=== PATIENT | female | born 1945 | race African-American/Black ===

== ENCOUNTER 2019-01-24 09:28 | Day surgery (SDC) | payer MEDICARE ==
[2019-01-24 10:48] LABS: #Eosinphils 0.1 thou/uL (0.0-0.7); #Lymphocytes 1.2 thou/uL (1.20-3.40); #Monocytes 0.4 thou/uL (0.11-0.59); #Neutrophils 2.8 thou/uL (1.40-6.50); %Basophils 0.4 % (0.0-1.0); %Eosinophils 2.4 % (0.0-10.0); %Lymphocytes 27.2 % (21.0-51.0); %Monocytes 9.6 % (0.0-10.0); %Neutrophils 60.4 % (42.0-75.0); Hemoglobin 8.9 g/dL (12.0-16.0); Mean Corpuscular HGB CONC 32.3 g/dL (32.0-36.0); Mean Corpuscular Hemoglobin 27.6 pg (27.0-31.0); Mean Corpuscular Volume 85.4 fL (78.0-98.0); Mean Platelet Volume 8.3 fL (7.4-10.4); Platelet Count 160 thou/uL (130-400); RBC Distribution Width 11.8 % (11.5-14.5); Red Blood Cell (RBC) Count 3.23 mill/uL (4.20-5.40); White Blood Cell (WBC) Count 4.6 thou/uL (4.8-10.8)
[2019-01-24 10:56] LABS: Magnesium 2.3 mg/dL (1.6-2.6); Phosphorus 4.4 mg/dL (2.3-4.7)
[2019-01-24 10:58] LABS: ALT (SGPT) 10 U/L (8-55); AST (SGOT) 14 U/L (5-34); Albumin 4.1 g/dL (3.4-4.8); Alkaline Phosphatase 169 U/L (40-150); Anion Gap 16 mmol/L (10-20); BUN (Urea Nitrogen) 88 mg/dL (9.8-20.1); Bilirubin, Total 0.2 mg/dL (0.2-1.2); Calc. Creatinine Clearance 0 mL/min (70-130); Calcium 9.2 mg/dL (7.8-10.44); Carbon Dioxide 21 mmol/L (23-31); Chloride 105 mmol/L (98-107); Estimated GFR-MDRD 8; Globulin 2.7 g/dL (2.4-3.5); Glucose 69 mg/dL (83-110); Potassium 4.1 mmol/L (3.5-5.1); Protein, Total 6.8 g/dL (6.0-8.3); Sodium 138 mmol/L (136-145)
--- NOTE | 2019-01-24 11:23 | PDOC.FPRHP ---
- History of Present Illness History of Present Illness: Patient is a 73 year old female, past medical history of HTN, DMII and leukemia (remission x 8 years) was sent to the ED by her primary care physician Dr. Thomas, due to a GFR of 5. The patient notes that her kidney function has been declining ever since she had dialysis, last time 8 years ago, for her leukemia. Dr. Thomas has contacted the [facility] [employer] to have outpatient dialysis - History PMHx: PSHx: FHx: Social: - Vital signs BP: [] HR: [] RR: [] Tmax: [] Pox: []% on [] Wt: [] FMR H&P: Results - Labs Result Diagrams: 01/24/19 10:10 01/24/19 10:10 Lab results: WBC 4.6 thou/uL (4.8-10.8) L 01/24/19 10:10 Hgb 8.9 g/dL (12.0-16.0) L 01/24/19 10:10 Hct 27.6 % (36.0-47.0) L 01/24/19 10:10 MCV 85.4 fL (78.0-98.0) 01/24/19 10:10 Plt Count 160 thou/uL (130-400) 01/24/19 10:10 Neutrophils % 60.4 % (42.0-75.0) 01/24/19 10:10 Sodium 138 mmol/L (136-145) 01/24/19 10:10 Potassium 4.1 mmol/L (3.5-5.1) 01/24/19 10:10 Chloride 105 mmol/L (98-107) 01/24/19 10:10 Carbon Dioxide 21 mmol/L (23-31) L 01/24/19 10:10 BUN 88 mg/dL (9.8-20.1) H 01/24/19 10:10 Creatinine 5.23 mg/dL (0.6-1.1) H 01/24/19 10:10 Glucose 69 mg/dL (83-110) L 01/24/19 10:10 Calcium 9.2 mg/dL (7.8-10.44) 01/24/19 10:10 Total Bilirubin 0.2 mg/dL (0.2-1.2) 01/24/19 10:10 AST 14 U/L (5-34) 01/24/19 10:10 ALT 10 U/L (8-55) 01/24/19 10:10 Alkaline Phosphatase 169 U/L (40-150) H 01/24/19 10:10 Serum Total Protein 6.8 g/dL (6.0-8.3) 01/24/19 10:10 Albumin 4.1 g/dL (3.4-4.8) 01/24/19 10:10 FMR H&P: Upper Level - Plan Date/Time: 01/24/19 1119 I, [], have evaluated this patient and agree with findings/plan as outlined by internet marketing director resident. Pertinent changes/additions are listed here.
--- NOTE | 2019-01-24 11:36 | RAD ---
XR Chest 1 View Portable HISTORY: Dyspnea. Patient to start dialysis. COMPARISON: None. FINDINGS: Heart size is enlarged. There are atherosclerotic changes of the aorta. The lungs are clear of infiltrates. There are no signs of failure. IMPRESSION: Mild cardiomegaly.
[2019-01-24] MEDS ORDERED: Acetaminophen 325 MG TAB ONE (11:39)
[2019-01-24 12:08] LABS: HBSAB Concentration 1.71 mIU/mL; HBSAg Index 0.19 S/CO (0-0.99); Hep B Core Total Ab Non-Reactive (NonReactive); Hep B Core Total Index 0.04 S/CO (0-0.79); Hep B Surf AB Non-Reactive (NonReactive); Hep B Surf Ag Non-Reactive S/CO (NonReactive); Hep C IgG Ab Non-Reactive (NonReactive); Hep C Index 0.12 S/CO (0-0.79)
[2019-01-24] MEDS ORDERED: Bupivacaine/Epinephrine 0.25% 30 ML VIAL ONE (16:20)
[2019-01-24] MEDS ORDERED: Heparin 10,000 UNITS/1 ML VIAL ONE (16:20)
[2019-01-24] MEDS ORDERED: Fentanyl 100 MCG/2 ML VIAL ONE ×4 (17:02→19:29)
--- NOTE | 2019-01-24 17:21 | HP ---
CHIEF COMPLAINT: Renal failure. HISTORY OF PRESENT ILLNESS: Ms. Smith is a 73-year-old woman, who recently moved to the area. She went to her deputy chief executive today and was told to come to the emergency room for institution of dialysis. However, when she was evaluated here, Dr. Fierro felt that she does not require immediate dialysis and could wait for a peritoneal dialysis catheter to be placed. The patient prefers peritoneal dialysis to hemodialysis as her long-term option of choice and has already discussed her options with a dialysis choice nurse. She has very mild uremia symptoms of decreased appetite and has no fluid overload or hyperkalemia and her creatinine is 5 or as it has been as high as 9 in the past. She has been on dialysis 8 years ago when she was undergoing treatment for leukemia, but her renal function recovered and she has been off dialysis since then. PAST MEDICAL HISTORY: Type 2 diabetes; hypertension; hyperlipidemia; hypothyroidism; arthritis; and history of leukemia, currently in remission. PAST SURGICAL HISTORY: Partial hysterectomy and tunneled dialysis catheter placement and later removal. ALLERGIES: NO KNOWN DRUG ALLERGIES. OUTPATIENT MEDICATIONS: Include: 1. Amlodipine 10 mg p.o. daily. 2. Atorvastatin 10 mg p.o. daily. 3. Synthroid 125 mcg p.o. daily. 4. Metoprolol 25 mg p.o. daily. 5. Tramadol 50 mg p.o. q.6 hours p.r.n. pain. 6. Ranitidine 150 mg p.o. b.i.d. 7. Sucralfate 1 g p.o. t.i.d. 8. Align probiotic one p.o. daily. 9. Antimicrobial topical solution swish and spit twice a day. REVIEW OF SYSTEMS: Ten system review of systems is negative except per HPI. FAMILY HISTORY: Noncontributory. Her daughter has lupus. SOCIAL HISTORY: She is currently living with her daughter. She does not smoke, drink, or use illicit drugs. LABORATORY DATA: Troponin is less than 1.01. BUN and creatinine are 88 and 5.23, potassium is 4.1, bicarb is 21. White cells 4.6, hematocrit 27.6, platelets 160. Phosphorus 4.4. Alkaline phosphatase is slightly high at 169, but other LFTs are normal. PHYSICAL EXAMINATION: VITAL SIGNS: The patient was initially quite hypertensive in the emergency room, but blood pressure has come down to normal range at 120/85, heart rate 66, respirations 18, 98% saturated on room air. GENERAL: Reveals a pleasant older woman, in no acute distress, who appears younger than her stated age. HEENT: Unremarkable. NECK: Supple without lymphadenopathy or thyroid nodules. HEART: Regular in its rate and rhythm without rubs or gallops. She does have a soft systolic murmur, which is most clearly audible at the right upper sternal border and does not radiate. ABDOMEN: Soft, nontender, nondistended. She has a healed lower midline scar without any palpable masses or hernias. EXTREMITIES: Warm and well perfused with normal dorsalis pedis pulses and no edema. NEURO: No focal deficits. PSYCHIATRIC: Alert, oriented, and appropriate. ASSESSMENT: End-stage renal failure with need to institute dialysis. Her deputy chief executive does not believe that immediate dialysis is necessary and thinks that she can wait a couple of weeks to mature a peritoneal dialysis catheter. The patient strongly prefers peritoneal dialysis to hemodialysis. The procedure of laparoscopic peritoneal dialysis catheter placement was discussed with the patient. Inherent risks were also discussed. These include, but are not limited to, bleeding, infection, risks of anesthesia, damage to nearby structures including bowel and blood vessels, and failure of the peritoneal dialysis catheter to function which would require placement of hemodialysis catheter and eventually fistula or graft. She understands and accepts these risks and wishes to proceed. She has been posted for the operating room schedule for today. Job ID: [id number]
[2019-01-24] MEDS ORDERED: Atracurium 100 MG/10 ML VIAL ONE (18:20)
[2019-01-24] MEDS ORDERED: Ondansetron PF 4 MG/2 ML Vial ONE (19:27)
[2019-01-24] MEDS ORDERED: Promethazine HCl 25 MG/ML VIAL ONE (20:32)
--- NOTE | 2019-01-26 11:08 | PDOC.OP ---
Operative Note - Operative Note Operative Note: PROCEDURE: Laparoscopic peritoneal dialysis catheter placement SURGEON: Jossie Almanzar M.D. DATE OF PROCEDURE: 01/24/2019 PREOPERATIVE DIAGNOSIS: Renal failure POSTOPERATIVE DIAGNOSIS: Renal failure HISTORY: Patient with renal failure and need for imminent dialysis. Peritoneal dialysis has been selected as the modality of choice and a laparoscopic peritoneal dialysis catheter placement has been requested. PROCEDURE IN DETAIL: After informed consent was obtained and appropriate preoperative antibiotic were administered the patient was taken to the operating room, placed in supine position and general endotracheal anesthesia was administered. The abdomen was sterilely prepped and draped and local anesthesia infused at the level of the umbilicus. A transverse skin incision was made and the fascia was elevated. A Veress needle was placed into the abdominal cavity without difficulty and carbon dioxide gas insufflated to an intra-abdominal pressure 15 which the patient tolerated well. There is needle was withdrawn and a [place] port advanced under direct laparoscopic vision into the abdominal cavity which was carefully examined. There was no evidence of Veress needle or trocar injury. There were no significant adhesions. A 5 mm trocar was placed in the lateral upper abdomen and the patient was placed in Trendelenburg. The small bowel was easily drawn up out of the pelvis and no adhesions seen in this area. The bottom of the posterior rectus sheath was identified. Local anesthesia was infused to the skin and subcutaneous tissues overlying and lateral to this area. A skin incision was made and an 8 mm trocar tunneled superiorly medially and then inferiorly through the rectus sheath entering the abdominal cavity just above the inferior edge of the rectus sheath. The peritoneal dialysis catheter was placed through the trocar and held in place positioning the inner cuff within the rectus muscle. The trocar was withdrawn and the end of the peritoneal dialysis catheter placed into the pelvis. Saline was infused and drained easily out of the peritoneal cavity through the cuffed tunneled dialysis catheter. The camera was moved to the upper abdominal trocar site and the umbilical trocar removed. The fascia was bridged with a 0 Vicryl suture on a GraNee needle and the sutures secured not tied down. The trocar was replaced through the same defect and the camera moved back to the umbilical location. The upper abdominal trocar was removed and a 0 Vicryl suture on a GraNee needle used to close the fascial defect. Carbon dioxide gas was allowed to desufflate through the umbilical trocar which was then removed and the fascia closed with the pre-existing suture. The second cuff of the peritoneal dialysis catheter was positioned within the subcutaneous tissues and the skin incision at the exit site closed in 2 layers with 4-0 Monocryl suture. The other skin incisions were closed with subcuticular 4-0 Monocryl suture as well. Dermabond dressings were placed and allowed to dry. Heparin flush was infused through the peritoneal dialysis catheter which was then capped and clamped. Once the Dermabond was dry the PD exit site was dressed with gauze and Tegaderm. The patient was extubated and taken to the recovery room in good condition. Estimated blood loss was minimal. There were no complications. There were no specimens.
--- NOTE | 2019-01-26 13:38 | EKG ---
Test Reason : NEEDS Blood Pressure : / mmHG Vent. Rate : 060 BPM Atrial Rate : 060 BPM P-R Int : 182 ms QRS Dur : 100 ms QT Int : 426 ms P-R-T Axes : 053 013 061 degrees QTc Int : 426 ms Normal sinus rhythm Normal ECG Confirmed by DOMI ALDRIDGE D.O. ([id number]), book editor AC MORA ([id number]) on 01/26/2019 1:38:02 PM Referred By: Confirmed By:DOMI ALDRIDGE D.O.
== END 2019-01-24 21:15 | disposition home or self-care (01) ==
LOC: ERS 09:28
PROVIDERS: ATTEND Surgery
PROC: 0WHG43Z Insertion of Infusion Device into Peritoneal Cavity, Percutaneous Endoscopic Approach (ICD-10-PCS; principal; 2019-01-24)
DX: I12.0 Hypertensive chronic kidney disease with stage 5 chronic kidney disease or end stage renal disease (principal); E11.22 Type 2 diabetes mellitus with diabetic chronic kidney disease; N18.6 End stage renal disease; E78.5 Hyperlipidemia, unspecified; E03.9 Hypothyroidism, unspecified; M19.90 Unspecified osteoarthritis, unspecified site; Z85.6 Personal history of leukemia; Z79.899 Other long term (current) drug therapy
CPT/HCPCS: 36416; 71045; 80053; 83735; 84100; 84484; 85025; 86704; 86706; 86803; 87340; 93005; J0690; J1644; J2405; J2550; J3010

== ENCOUNTER 2020-10-19 10:09 | Inpatient (IN) | payer MEDICARE ==
[2020-10-19] MEDS ORDERED: Dexamethasone 4 mg/ml Vial ONE (11:20)
[2020-10-19] MEDS ORDERED: Dexamethasone 10 MG/ML VIAL ONE (11:22)
[2020-10-19 12:01] LABS: #Eosinphils 0.2 thou/uL (0.0-0.7); #Lymphocytes 1.4 thou/uL (1.20-3.40); #Monocytes 0.5 thou/uL (0.11-0.59); #Neutrophils 16.6 thou/uL (1.40-6.50); %Basophils 0.2 % (0.0-1.0); %Lymphocytes 7.7 % (21.0-51.0); %Monocytes 2.6 % (0.0-10.0); %Neutrophils 88.6 % (42.0-75.0); Hemoglobin 11.9 g/dL (12.0-16.0); Mean Corpuscular HGB CONC 31.6 g/dL (32.0-36.0); Mean Corpuscular Hemoglobin 29.2 pg (27.0-31.0); Mean Corpuscular Volume 92.5 fL (78.0-98.0); Mean Platelet Volume 9.7 fL (7.4-10.4); Platelet Count 254 thou/uL (130-400); RBC Distribution Width 15.8 % (11.5-14.5); Red Blood Cell (RBC) Count 4.07 mill/uL (4.20-5.40); White Blood Cell (WBC) Count 18.7 thou/uL (4.8-10.8)
[2020-10-19] MEDS ORDERED: Cefepime 2 GM VIAL ONE (12:01)
[2020-10-19] MEDS ORDERED: diphenhydrAMINE 12.5 MG/5 ML UDCUP ONE (12:01)
[2020-10-19] MEDS ORDERED: Lorazepam 2 MG/ML VIAL ONE (12:01)
[2020-10-19] MEDS ORDERED: Vancomycin 1 GM/200 ML BAG ONE (12:01)
[2020-10-19] MEDS ORDERED: diphenhydrAMINE 50 MG/ML VIAL ONE (12:02)
[2020-10-19 12:09] LABS: PTT 29.6 sec (22.9-36.1)
[2020-10-19 12:10] LABS: INR-International Normal Ratio 0.9; Prothrombin Time 12.5 sec (12.0-14.7)
[2020-10-19 12:14] LABS: ALT (SGPT) 25 U/L (8-55); AST (SGOT) 55 U/L (5-34); Albumin 3.2 g/dL (3.4-4.8); Alkaline Phosphatase 53 U/L (40-110); Anion Gap 18 mmol/L (10-20); BUN (Urea Nitrogen) 61 mg/dL (9.8-20.1); Bilirubin, Total 0.4 mg/dL (0.2-1.2); CK (CPK) 1423 U/L (29-168); Calc. Creatinine Clearance 0 mL/min (70-130); Calcium 8.6 mg/dL (7.8-10.44); Carbon Dioxide 21 mmol/L (23-31); Chloride 98 mmol/L (98-107); Globulin 2.2 g/dL (2.4-3.5); Glucose 118 mg/dL (83-110); Lipase 27 U/L (8-78); Potassium 3.7 mmol/L (3.5-5.1); Protein, Total 5.4 g/dL (5.8-8.1); Sodium 133 mmol/L (136-145)
[2020-10-19 12:49] LABS: CKMB 34.2 ng/mL (0-6.6)
[2020-10-19] MEDS ORDERED: EPINEPHrine 1 MG/10 ML Abboject SYRINGE ONE (13:16)
[2020-10-19] MEDS ORDERED: EPINEPHrine 1 MG/ML VIAL ONE (13:17)
[2020-10-19] MEDS ORDERED: Dextrose 5% in Water 1,000 ML IV PRN (13:54)
[2020-10-19] MEDS ORDERED: Senokot S 8.6-50 MG TAB PO PRN (13:54)
[2020-10-19] MEDS ORDERED: Acetaminophen 325 MG TAB PO PRN (13:54)
[2020-10-19] MEDS ORDERED: Dextrose 50% Abboject 50 ML SYRINGE SLOW IVP PRN (13:54)
[2020-10-19] MEDS ORDERED: HumaLOG 300 UNITS/3 ML VIAL SC PRN ×2 (13:54)
[2020-10-19] MEDS ORDERED: diphenhydrAMINE 50 MG/ML VIAL IVP PRN (13:57)
[2020-10-19] MEDS ORDERED: Fluconazole In NaCl,Iso-Osm 100 MG in Admixture Fee 1 EACH IVPB SCH (14:00)
[2020-10-19 14:41] LABS: HBSAB Concentration Less than 8.00 mIU/mL; Hep B Surf AB Non-Reactive (NonReactive)
[2020-10-19] MEDS ORDERED: Lactated Ringer's 1,000 ML IV SCH (17:15)
[2020-10-19] MEDS ORDERED: Cefepime 1 GM in Sodium Chloride 0.9% 100 ML IVPB SCH (20:50)
[2020-10-19] MEDS ORDERED: Cefepime 2 GM in Sodium Chloride 0.9% 100 ML IVPB SCH (21:30)
[2020-10-19] MEDS: hydrOXYzine 25 MG TAB PO SCH (22:40)
[2020-10-19] MEDS: Famotidine 20 MG TAB PO SCH (22:40)
[2020-10-19 23:50] LABS: Vancomycin, Random 14.7 ug/mL (See Comment)
[2020-10-20 01:11] VITALS: BMI 30.9
[2020-10-20] MEDS: hydrOXYzine 25 MG TAB PO SCH ×6 (01:36→23:13)
[2020-10-20 05:06] LABS: ALT (SGPT) 29 U/L (8-55); AST (SGOT) 72 U/L (5-34); Albumin 2.6 g/dL (3.4-4.8); Alkaline Phosphatase 51 U/L (40-110); Anion Gap 15 mmol/L (10-20); BUN (Urea Nitrogen) 66 mg/dL (9.8-20.1); Bilirubin, Total 0.3 mg/dL (0.2-1.2); Calc. Creatinine Clearance 6 mL/min (70-130); Calcium 8.1 mg/dL (7.8-10.44); Carbon Dioxide 20 mmol/L (23-31); Chloride 100 mmol/L (98-107); Globulin 1.9 g/dL (2.4-3.5); Glucose 108 mg/dL (83-110); Potassium 3.1 mmol/L (3.5-5.1); Protein, Total 4.5 g/dL (5.8-8.1); Sodium 132 mmol/L (136-145)
[2020-10-20] MEDS ORDERED: Levothyroxine Sodium 125 MCG TAB PO SCH (06:00)
[2020-10-20 06:33] LABS: Band 20 % (5-11); Eosinophils 1 % (0-10); Hemoglobin 11.5 g/dL (12.0-16.0); Lymphocytes 4 % (21-51); MDiff Complete? YES; Mean Corpuscular HGB CONC 31.7 g/dL (32.0-36.0); Mean Corpuscular Hemoglobin 29.1 pg (27.0-31.0); Mean Corpuscular Volume 91.6 fL (78.0-98.0); Mean Platelet Volume 9.9 fL (7.4-10.4); Monocytes 3 % (0-10); Neutrophil 72 % (42-75); Nucleated RBC 1 % (0); Platelet Count 235 thou/uL (130-400); Red Blood Cell (RBC) Count 3.94 mill/uL (4.20-5.40); White Blood Cell (WBC) Count 21.7 thou/uL (4.8-10.8)
[2020-10-20] MEDS ORDERED: hydrALAZINE 20 MG/ML VIAL SLOW IVP PRN (06:56)
[2020-10-20] MEDS ORDERED: Heparin 10,000 UNITS/ 10 ML VIAL ONE ×2 (08:44→14:05)
[2020-10-20] MEDS ORDERED: HOLD VANCOMYCIN FOR LEVEL >20 FS SCH (10:30)
[2020-10-20] MEDS ORDERED: VANCOMYCIN 1.25 GM/250 ML BAG 1.25 GM in Premix Bag 1 BAG IVPB SCH (10:30)
[2020-10-20] MEDS ORDERED: Vancomycin HCl 750 MG in Sodium Chloride 0.9% 250 ML 250 ML IVPB SCH (10:30)
[2020-10-20] MEDS ORDERED: Vancomycin HCl 500 MG in Sodium Chloride 0.9% 100 ML IVPB SCH (10:30)
[2020-10-20] MEDS ORDERED: Vancomycin 1 GM in Premix Bag 1 BAG IVPB SCH (10:30)
[2020-10-20] MEDS: Fluconazole In NaCl,Iso-Osm 100 MG in Admixture Fee 1 EACH IVPB SCH (11:12)
[2020-10-20] MEDS ORDERED: Ondansetron ODT 4 MG TAB PO PRN (11:53)
[2020-10-20] MEDS ORDERED: traMADol HCl 50 MG TAB PO PRN (11:53)
[2020-10-20] MEDS ORDERED: Docusate 100 MG CAP PO PRN (11:53)
[2020-10-20] MEDS ORDERED: NIFEdipine XL 60 MG TAB PO SCH (12:00)
[2020-10-20] MEDS ORDERED: Fentanyl 100 MCG/2 ML VIAL ONE ×2 (12:54→14:07)
[2020-10-20 13:02] LABS: Vancomycin, Random 14.5 ug/mL (See Comment)
[2020-10-20] MEDS: Sevelamer Carbonate 800 MG TAB PO SCH ×2 (13:33→16:31)
[2020-10-20] MEDS ORDERED: Cefepime 1 GM in Sodium Chloride 0.9% 100 ML IVPB SCH (13:42)
[2020-10-20] MEDS ORDERED: Heparin 5,000 UNITS/ML VIAL ONE (14:05)
[2020-10-20] MEDS ORDERED: Lidocaine 1% w/Epinephrine 1:100K 20 ML VIAL ONE (14:05)
[2020-10-20] MEDS ORDERED: Protamine Sulfate 50 MG/5 ML VIAL ONE (14:05)
[2020-10-20] MEDS ORDERED: Bupivacaine 0.25% HCL 30 ML VIAL ONE (14:05)
[2020-10-20] MEDS ORDERED: Ondansetron PF 4 MG/2 ML Vial ONE ×2 (14:07→14:50)
[2020-10-20] MEDS ORDERED: Propofol 500 MG/50 ML VIAL ONE ×2 (14:07)
[2020-10-20] MEDS: Nystatin 500,000 UNITS/5 ML UDCUP SSW SCH ×3 (14:26→23:09)
[2020-10-20] MEDS ORDERED: Bupivacaine HCl 0.5%/Epinephrine 1:200,000/PF 30 ml Vial ONE (14:50)
[2020-10-20] MEDS ORDERED: Sodium Chloride 0.9% 30 ML ONE (15:06)
[2020-10-20] MEDS: hydrALAZINE 25 MG TAB PO SCH ×2 (16:30→23:09)
[2020-10-20] MEDS ORDERED: Promethazine HCl 25 MG/ML VIAL IM PRN (17:46)
[2020-10-20] MEDS ORDERED: Promethazine HCl 25 MG/ML VIAL SLOW IVP PRN (17:46)
[2020-10-20] MEDS ORDERED: Ondansetron HCl/PF 4 MG/2 ML Vial IVP PRN (17:46)
[2020-10-20] MEDS ORDERED: Cefepime 0.5 GM, Admixture Fee 1 EACH in Sodium Chloride 0.9% 100 ML IVPB SCH (22:00)
[2020-10-20] MEDS: Carvedilol 6.25 MG TAB PO SCH (23:12)
[2020-10-20] MEDS: Famotidine 20 MG TAB PO SCH (23:12)
[2020-10-20] MEDS: Atorvastatin Calcium 10 MG TAB PO SCH (23:12)
[2020-10-20] MEDS: cloNIDine 0.1 MG TAB PO SCH (23:12)
[2020-10-21] MEDS: hydrOXYzine 25 MG TAB PO SCH ×3 (05:17→08:13)
[2020-10-21] MEDS: Levothyroxine Sodium 125 MCG TAB PO SCH (07:43)
[2020-10-21] MEDS: NIFEdipine XL 60 MG TAB PO SCH (08:12)
[2020-10-21] MEDS: Sevelamer Carbonate 800 MG TAB PO SCH ×3 (08:12→17:07)
[2020-10-21] MEDS: cloNIDine 0.1 MG TAB PO SCH (08:12)
[2020-10-21] MEDS: Folic Acid/Vit B Comp W-C PO SCH (08:12)
[2020-10-21] MEDS: hydrALAZINE 25 MG TAB PO SCH (08:12)
[2020-10-21] MEDS: Calcitriol 0.25 MCG CAP PO SCH (08:13)
[2020-10-21] MEDS: Nystatin 500,000 UNITS/5 ML UDCUP SSW SCH ×4 (08:14→20:10)
[2020-10-21] MEDS: Furosemide 20 MG TAB PO SCH (08:14)
[2020-10-21] MEDS: Carvedilol 6.25 MG TAB PO SCH ×2 (08:14→20:11)
[2020-10-21] MEDS ORDERED: diphenhydrAMINE 50 MG/ML VIAL IVP PRN (08:14)
[2020-10-21] MEDS: Losartan 25 MG TAB PO SCH (08:21)
[2020-10-21 08:27] LABS: ALT (SGPT) 18 U/L (8-55); AST (SGOT) 42 U/L (5-34); Albumin 2.4 g/dL (3.4-4.8); Alkaline Phosphatase 54 U/L (40-110); Anion Gap 14 mmol/L (10-20); BUN (Urea Nitrogen) 48 mg/dL (9.8-20.1); Bilirubin, Total 0.3 mg/dL (0.2-1.2); Calc. Creatinine Clearance 7 mL/min (70-130); Calcium 7.7 mg/dL (7.8-10.44); Carbon Dioxide 25 mmol/L (23-31); Chloride 101 mmol/L (98-107); Globulin 1.9 g/dL (2.4-3.5); Glucose 102 mg/dL (83-110); Potassium 3.6 mmol/L (3.5-5.1); Protein, Total 4.3 g/dL (5.8-8.1); Sodium 136 mmol/L (136-145)
[2020-10-21 08:28] LABS: Vancomycin, Random 15.6 ug/mL (See Comment)
[2020-10-21 08:44] LABS: HBSAg Index 0.17 S/CO (0-0.99); Hep B Core Total Ab Non-Reactive (NonReactive); Hep B Core Total Index 0.02 S/CO (0-0.79); Hep B Surf Ag Non-Reactive S/CO (NonReactive); Hep C IgG Ab Non-Reactive (NonReactive); Hep C Index 0.06 S/CO (0-0.79)
[2020-10-21 09:08] LABS: Hemoglobin 10.4 g/dL (12.0-16.0); Mean Corpuscular HGB CONC 32.1 g/dL (32.0-36.0); Mean Corpuscular Hemoglobin 29.7 pg (27.0-31.0); Mean Corpuscular Volume 92.5 fL (78.0-98.0); Mean Platelet Volume 10.1 fL (7.4-10.4); Platelet Count 174 thou/uL (130-400); RBC Distribution Width 16.9 % (11.5-14.5); Red Blood Cell (RBC) Count 3.51 mill/uL (4.20-5.40); White Blood Cell (WBC) Count 18.9 thou/uL (4.8-10.8)
[2020-10-21 10:17] LABS: Band 13 % (5-11); Eosinophils 3 % (0-10); Lymphocytes 3 % (21-51); MDiff Complete? YES; Monocytes 2 % (0-10); Neutrophil 79 % (42-75); Platelet Morphology Comment Appears Adequate; Polychromasia SLIGHT = 2-3 cells (100X) (0-2/hpf)
[2020-10-21] MEDS: Fluticasone Propionate Nasal Spray 16 gm Bottle NASAL SCH (10:20)
[2020-10-21 11:28] LABS: Hep B Surf AB NonReactive (NonReactive)
[2020-10-21 11:29] LABS: HBSAB Concentration 6.66 mIU/mL
[2020-10-21] MEDS: Fluconazole In NaCl,Iso-Osm 100 MG in Admixture Fee 1 EACH IVPB SCH (11:29)
[2020-10-21] MEDS ORDERED: Loratadine 10 MG TAB PO SCH (12:00)
[2020-10-21] MEDS ORDERED: cloNIDine 0.1 MG TAB PO PRN (15:00)
[2020-10-21] MEDS: Famotidine 20 MG TAB PO SCH (20:10)
[2020-10-21] MEDS: Atorvastatin Calcium 10 MG TAB PO SCH (20:11)
[2020-10-22 05:48] LABS: #Eosinphils 0.3 thou/uL (0.0-0.7); #Lymphocytes 1.3 thou/uL (1.20-3.40); #Monocytes 0.5 thou/uL (0.11-0.59); #Neutrophils 15.1 thou/uL (1.40-6.50); %Basophils 0.2 % (0.0-1.0); %Eosinophils 1.5 % (0.0-10.0); %Lymphocytes 7.6 % (21.0-51.0); %Neutrophils 87.7 % (42.0-75.0); Hemoglobin 10.1 g/dL (12.0-16.0); Mean Corpuscular HGB CONC 31.6 g/dL (32.0-36.0); Mean Corpuscular Volume 94.7 fL (78.0-98.0); Mean Platelet Volume 10.2 fL (7.4-10.4); Platelet Count 161 thou/uL (130-400); RBC Distribution Width 16.8 % (11.5-14.5); Red Blood Cell (RBC) Count 3.38 mill/uL (4.20-5.40); White Blood Cell (WBC) Count 17.2 thou/uL (4.8-10.8)
[2020-10-22 05:49] LABS: ALT (SGPT) 11 U/L (8-55); AST (SGOT) 34 U/L (5-34); Albumin 2.2 g/dL (3.4-4.8); Alkaline Phosphatase 62 U/L (40-110); Anion Gap 13 mmol/L (10-20); BUN (Urea Nitrogen) 26 mg/dL (9.8-20.1); Bilirubin, Total 0.2 mg/dL (0.2-1.2); Calc. Creatinine Clearance 11 mL/min (70-130); Calcium 7.3 mg/dL (7.8-10.44); Carbon Dioxide 25 mmol/L (23-31); Chloride 102 mmol/L (98-107); Glucose 101 mg/dL (83-110); Potassium 3.5 mmol/L (3.5-5.1); Protein, Total 4.2 g/dL (5.8-8.1); Sodium 136 mmol/L (136-145)
[2020-10-22] MEDS: Levothyroxine Sodium 125 MCG TAB PO SCH (06:54)
[2020-10-22] MEDS: Folic Acid/Vit B Comp W-C PO SCH (08:41)
[2020-10-22] MEDS: Loratadine 10 MG TAB PO SCH (08:41)
[2020-10-22] MEDS: Sevelamer Carbonate 800 MG TAB PO SCH ×3 (08:41→16:57)
[2020-10-22] MEDS: NIFEdipine XL 60 MG TAB PO SCH (08:41)
[2020-10-22] MEDS: Furosemide 20 MG TAB PO SCH (08:41)
[2020-10-22] MEDS: Nystatin 500,000 UNITS/5 ML UDCUP SSW SCH ×4 (08:41→22:08)
[2020-10-22] MEDS: Calcitriol 0.25 MCG CAP PO SCH (08:41)
[2020-10-22] MEDS: Carvedilol 6.25 MG TAB PO SCH ×2 (08:42→22:09)
[2020-10-22] MEDS: Fluticasone Propionate Nasal Spray 16 gm Bottle NASAL SCH (08:42)
[2020-10-22] MEDS: Losartan 25 MG TAB PO SCH (08:42)
[2020-10-22] MEDS: Nystatin Powder 15 GM BOT TOP SCH (08:43)
[2020-10-22] MEDS: Fluconazole In NaCl,Iso-Osm 100 MG in Admixture Fee 1 EACH IVPB SCH (13:01)
[2020-10-22] MEDS: Tuberculin PPD 0.1 ML VIAL I-DERMAL SCH (14:58)
[2020-10-22 18:24] LABS: SARS-CoV-2 PCR by NAA Not Detected (NotDetected)
[2020-10-22] MEDS: Atorvastatin Calcium 10 MG TAB PO SCH (22:12)
[2020-10-22] MEDS: Famotidine 20 MG TAB PO SCH (22:13)
[2020-10-23] MEDS: Levothyroxine Sodium 125 MCG TAB PO SCH (05:39)
[2020-10-23] MEDS ORDERED: Heparin 10,000 UNITS/ 10 ML VIAL ONE (09:12)
[2020-10-23] MEDS: Sevelamer Carbonate 800 MG TAB PO SCH ×3 (10:57→16:55)
[2020-10-23] MEDS: Nystatin 500,000 UNITS/5 ML UDCUP SSW SCH ×3 (11:01→16:55)
[2020-10-23] MEDS: Loratadine 10 MG TAB PO SCH (11:05)
[2020-10-23] MEDS: Folic Acid/Vit B Comp W-C PO SCH (11:05)
[2020-10-23] MEDS: Calcitriol 0.25 MCG CAP PO SCH (11:05)
[2020-10-23] MEDS: Carvedilol 6.25 MG TAB PO SCH (11:05)
[2020-10-23] MEDS: NIFEdipine XL 60 MG TAB PO SCH (11:05)
[2020-10-23] MEDS: Furosemide 20 MG TAB PO SCH (11:06)
[2020-10-23] MEDS: Losartan 25 MG TAB PO SCH (11:06)
[2020-10-23] MEDS: Nystatin Powder 15 GM BOT TOP SCH (11:06)
[2020-10-23] MEDS: Fluticasone Propionate Nasal Spray 16 gm Bottle NASAL SCH (11:09)
[2020-10-23] MEDS: Fluconazole In NaCl,Iso-Osm 100 MG in Admixture Fee 1 EACH IVPB SCH (12:17)
[2020-10-23 12:46] LABS: Hemoglobin 10.4 g/dL (12.0-16.0); Mean Corpuscular HGB CONC 31.2 g/dL (32.0-36.0); Mean Corpuscular Hemoglobin 29.5 pg (27.0-31.0); Mean Corpuscular Volume 94.6 fL (78.0-98.0); Mean Platelet Volume 10.1 fL (7.4-10.4); Platelet Count 148 thou/uL (130-400); RBC Distribution Width 16.7 % (11.5-14.5); Red Blood Cell (RBC) Count 3.51 mill/uL (4.20-5.40); White Blood Cell (WBC) Count 19.8 thou/uL (4.8-10.8)
[2020-10-23 13:25] LABS: Anisocytosis SLIGHT = 6-15 cells (100X) (0-5/hpf); Band 3 % (5-11); Eosinophils 3 % (0-10); Lymphocytes 5 % (21-51); MDiff Complete? YES; Monocytes 4 % (0-10); Neutrophil 85 % (42-75); Platelet Morphology Comment Appears Adequate; Polychromasia MODERATE = 3-4 cells (100X) (0-2/hpf); Schistocytes SLIGHT = 2-5 cells (100X) (0-1/hpf)
[2020-10-23 16:05] VITALS: BP 141/76; TEMP 98.9
[2020-10-23] MEDS: Tuberculin PPD 0.1 ML VIAL I-DERMAL SCH (17:50)
[2020-10-27] MEDS ORDERED: Ergocalciferol 1.25 MG(50,000 UNITS) CAP PO SCH (09:00)
== END 2020-10-23 17:42 | disposition home or self-care (01) | DRG 907 ==
LOC: ERS 10:09 → 2NO 12:35
PROVIDERS: ADMIT Family Medicine; ATTEND Family Medicine
PROC: 031C0ZF Bypass Left Radial Artery to Lower Arm Vein, Open Approach (ICD-10-PCS; principal; 2020-10-20)
PROC: 0WPG03Z Removal of Infusion Device from Peritoneal Cavity, Open Approach (ICD-10-PCS; 2020-10-20)
PROC: 0JH60XZ Insertion of Tunneled Vascular Access Device into Chest Subcutaneous Tissue and Fascia, Open Approach (ICD-10-PCS; 2020-10-20)
PROC: 02HV33Z Insertion of Infusion Device into Superior Vena Cava, Percutaneous Approach (ICD-10-PCS; 2020-10-20)
PROC: B5181ZA Fluoroscopy of Superior Vena Cava using Low Osmolar Contrast, Guidance (ICD-10-PCS; 2020-10-20)
PROC: B548ZZA Ultrasonography of Superior Vena Cava, Guidance (ICD-10-PCS; 2020-10-20)
PROC: 5A1D70Z Performance of Urinary Filtration, Intermittent, Less than 6 Hours Per Day (ICD-10-PCS; 2020-10-23)
DX: T85.71XA Infection and inflammatory reaction due to peritoneal dialysis catheter, initial encounter (principal); N18.6 End stage renal disease; K65.9 Peritonitis, unspecified; I12.0 Hypertensive chronic kidney disease with stage 5 chronic kidney disease or end stage renal disease; M62.82 Rhabdomyolysis; C95.91 Leukemia, unspecified, in remission; E11.22 Type 2 diabetes mellitus with diabetic chronic kidney disease; E03.9 Hypothyroidism, unspecified; E78.5 Hyperlipidemia, unspecified; L27.0 Generalized skin eruption due to drugs and medicaments taken internally; L29.9 Pruritus, unspecified; D63.1 Anemia in chronic kidney disease; E88.09 Other disorders of plasma-protein metabolism, not elsewhere classified; Z20.822 Contact with and (suspected) exposure to COVID-19; G47.33 Obstructive sleep apnea (adult) (pediatric); Z99.2 Dependence on renal dialysis; Z90.711 Acquired absence of uterus with remaining cervical stump
CPT/HCPCS: 36415; 36416; 71045; 80053; 80202; 82550; 82553; 83605; 83690; 83880; 84484; 85025; 85610; 85730; 86580; 86704; 86706; 86803; 87040; 87102; 87340; 90935; 90945; 93005; 93970; 96365; 96372; 96375; C1752; G0257; J0171; J0690; J0692; J1100; J1200; J1450; J1644; J2060; J2405; J2704; J2720; J3010; J3370; J3490; J7050; Q0162; Q0163; S0020; U0003; U0005